=== PATIENT | male | born 1985 | race Asian ===

== ENCOUNTER 2017-10-25 00:46 | Emergency (ER) | payer OTHER ==
--- NOTE | 2017-10-25 01:19 | EDM.PDOC ---
ED HPI GENERAL MEDICAL PROBLEM - General Stated Complaint: HEADACHE AND PRESSURE HEADACHE Time Seen by Provider: 10/25/17 00:46 Source of Information: Reports: Patient, Family History Limitations: Reports: No Limitations - History of Present Illness INITIAL COMMENTS - FREE TEXT/NARRATIVE: 32 years old w m in prev healthy condition, come to the ed after he noticed pain at his post jael during and after intercourse. This i snow the second episode. No trauma, no N/V/D or any other acute medical issues. BP 161/75 Pulse 76 RR 17 Pulse ox 99% on RA Onset Date: 10/24/17 Onset Time: 18:00 Duration: Hour(s):, Intermittent, Improving Location: Reports: Head Quality: Reports: Ache, Dull, Throbbing Severity: Moderate Improves with: Reports: Other (intercourse) Worsens with: Reports: Other (interrcorse) Context: Reports: Other (intercourse) Associated Symptoms: Reports: No Other Symptoms headache Pain Score (Numeric/FACES): 8 - Related Data Allergies Allergy/AdvReac Type Severity Reaction Status Date / Time No Known Allergies Allergy Verified 10/25/17 01:36 Home Meds: Home Meds NK [No Known Home Meds] 10/25/17 [History] ED ROS GENERAL - Review of Systems Review Of Systems: See Below Constitutional: Reports: No Symptoms HEENT: Reports: No Symptoms Respiratory: Reports: No Symptoms Cardiovascular: Reports: No Symptoms Endocrine: Reports: No Symptoms GI/Abdominal: Reports: No Symptoms : Reports: No Symptoms Musculoskeletal: Reports: No Symptoms Skin: Reports: No Symptoms Neurological: Reports: No Symptoms Psychiatric: Reports: No Symptoms Hematologic/Lymphatic: Reports: No Symptoms Immunologic: Reports: No Symptoms - Physical Exam Exam: See Below Exam Limited By: Altered Mental Status General Appearance: Alert, WD/WN, No Apparent Distress Eye Exam: Bilateral Eye: Normal Inspection Ears: Normal External Exam Nose: Normal Inspection Throat/Mouth: Normal Inspection, Normal Lips, No Airway Compromise Head Exam: Atraumatic, Normocephalic Neck: Normal Inspection, Supple, Non-Tender, Full Range of Motion Respiratory/Chest: No Respiratory Distress, Lungs Clear, Normal Breath Sounds Cardiovascular: Normal Peripheral Pulses, Regular Rate, Rhythm GI/Abdominal: Normal Bowel Sounds, Soft, Non-Tender, No Organomegaly (Male) Exam: Deferred Rectal (Males) Exam: Deferred Neuro Exam (Abbreviated): Alert, Oriented, CN II-XII Intact, Normal Cognition, Normal Gait Back Exam: Normal Inspection, Full Range of Motion Extremities: Normal Inspection, Normal Range of Motion Psychiatric: Normal Affect, Normal Mood Skin Exam: Warm, Dry, Intact, Normal Color, No Rash EKG INTERPRETATION Rate (Beats/Min): 78 Course - Vital Signs Text/Narrative:: 32 years old w m in prev healthy condition, come to the ed after he noticed pain at his post jael during and after intercourse. This i snow the second episode. No trauma, no N/V/D or any other acute medical issues. BP 161/75 Pulse 76 RR 17 Pulse ox 99% on RA PE: WNWD W M NAD, Normal Neuro exam Imaging: CT head: NAD Impression: Headache, occipital, resolved in the ed Reexam: BP improved to 141/76 on D/C, H/A subsided. Plan: D/C with instructions Last Recorded V/S: Last Vital Signs Temp 36.6 C 10/25/17 00:55 Pulse 80 10/25/17 00:55 Resp 16 10/25/17 00:55 BP 161/75 H 10/25/17 00:55 Pulse Ox 98 10/25/17 00:55 - Orders/Labs/Meds Orders: Active Orders 24 hr Category Date Time Status Head wo Cont [CT] Stat Exams 10/25/17 01:19 Taken Departure - Departure Time of Disposition: 01:59 Disposition: Home, Self-Care 01 Condition: Good Clinical Impression: Headache Qualifiers: Headache chronicity pattern: episodic headache Intractability: not intractable - Discharge Information Referrals: Mj Dong MD [Primary Care Provider] - Forms: ED Department Discharge Additional Instructions: Please f/u with your PMD, consider MRI of head, please come back if your symptoms get worse acutely. - My Orders Last 24 Hours: My Active Orders 10/25/17 01:19 Head wo Cont [CT] Stat - Assessment/Plan Last 24 Hours: My Active Orders 10/25/17 01:19 Head wo Cont [CT] Stat
== END 2017-10-25 02:12 | disposition home or self-care (01) ==
LOC: FB.ED 00:46
DX: R51 Headache (principal)
CPT/HCPCS: 70450; 99284

== ENCOUNTER 2020-04-25 18:22 | Day surgery (SDC) | payer BC, OTHER ==
[2020-04-25] MEDS ORDERED: Ondansetron 4 MG/2 ML SDV IVPUSH ONE ×2 (19:11→22:01)
[2020-04-25] MEDS ORDERED: Morphine 2 MG/ML SYRINGE IVPUSH ONE (19:11)
[2020-04-25] MEDS ORDERED: Sodium Chloride 0.9% 1,000 ML IV SCH (19:15)
[2020-04-25] MEDS: Sodium Chloride 0.9% 10 ML Syringe FLUSH PRN (20:20)
[2020-04-25] MEDS ORDERED: Iopamidol 755 Mg/ML 100 ML Bottle IV ONE (20:32)
[2020-04-25] MEDS ORDERED: Lactated Ringers 1,000 ML IV SCH (22:00)
[2020-04-25] MEDS ORDERED: Succinylcholine 200 MG/10 ML MDV IV ONE (22:01)
[2020-04-25] MEDS ORDERED: Midazolam 1 MG/ML 2 ML SDV IV ONE (22:01)
[2020-04-25] MEDS ORDERED: Rocuronium 50 MG/5 ML Vial IV ONE (22:01)
[2020-04-25] MEDS ORDERED: Lactated Ringers 1,000 ML IV ONE (22:01)
[2020-04-25] MEDS ORDERED: Propofol 200 MG/20 ML SDV IV ONE (22:01)
[2020-04-25] MEDS ORDERED: fentaNYL 100 MCG/2 ML SDV IV ONE (22:01)
[2020-04-25] MEDS ORDERED: Glycopyrrolate 0.2 MG/ML 5 ML MDV IV ONE (22:01)
[2020-04-25] MEDS ORDERED: Neostigmine Methylsulfate 10 MG/10 ML MDV IVPUSH ONE (22:01)
[2020-04-25] MEDS ORDERED: HYDROmorphone 2 MG/ML SDV IV ONE (22:01)
[2020-04-25] MEDS ORDERED: Ketorolac 30 MG/ML SDV IVPUSH ONE (22:01)
[2020-04-25] MEDS ORDERED: cefOXitin 2 GM Vial IVPUSH ONE (22:22)
--- NOTE | 2020-04-25 22:30 | PCM.CONS ---
H&P History of Present Illness - General Date of Service: 04/25/20 Source of Information: Patient, RN Notes Reviewed History Limitations: Reports: No Limitations - History of Present Illness Symptom Onset Date: 04/24/20 Duration of Symptoms: Reports: Getting Worse Location: Reports: Abdomen (Initially diffuse and now on right side) Quality: Reports: Ache Severity: Moderate Improves with: Reports: None Worsens with: Reports: Movement Associated Symptoms: Reports: No Other Symptoms Right Middle Abdominal Pain Score (Numeric/FACES): 4 - Related Data Allergies/Adverse Reactions: Allergies Allergy/AdvReac Type Severity Reaction Status Date / Time No Known Allergies Allergy Verified 10/25/17 01:36 Home Medications: Home Meds NK [No Known Home Meds] 10/25/17 [History] Past Medical History - Past Health History Medical/Surgical History: Denies Medical/Surgical History Social & Family History - Tobacco Use Smoking Status *Q: Never Smoker H&P Review of Systems - Review of Systems: Review Of Systems: Comprehensive ROS is negative, except as noted in HPI. Exam - Exam Exam: See Below - Vital Signs Vital Signs: Last Vital Signs Temp 98.6 F 04/25/20 18:40 Pulse 87 04/25/20 18:40 Resp 16 04/25/20 18:40 BP 135/70 04/25/20 18:40 Pulse Ox 100 04/25/20 18:40 Weight: 83.915 kg - Exam General: Alert, Oriented Lungs: Clear to Auscultation, Normal Respiratory Effort Cardiovascular: Regular Rate, Regular Rhythm GI/Abdominal Exam: Soft, No Distention, Tender (in RLQ) - Patient Data Lab Results Last 24 hrs: Laboratory Results - last 24 hr 04/25/20 04/25/20 04/25/20 Range/Units 19:10 19:20 19:20 WBC 15.1 H (4.5-12.0) X10-3/uL RBC 5.26 (4.30-5.75) x10(6)uL Hgb 15.4 (13.5-17.8) g/dL Hct 47.7 (30.0-51.3) % MCV 90.7 (80-96) fL MCH 29.2 (27.7-33.6) pg MCHC 32.2 (32.2-35.4) g/dL RDW 12.6 (11.5-15.5) % Plt Count 313 (125-369) X10(3)uL MPV 7.9 (7.4-10.4) fL Neutrophils % (Manual) 68 (46-82) % Band Neutrophils % 3 (0-6) % Lymphocytes % (Manual) 23 (13-37) % Monocytes % (Manual) 5 (4-12) % Eosinophils % (Manual) 1 (0-5) % Sodium 138 (135-145) mmol/L Potassium 3.4 L (3.5-5.3) mmol/L Chloride 99 L (100-110) mmol/L Carbon Dioxide 33 H (21-32) mmol/L BUN 10 (7-18) mg/dL Creatinine 1.2 (0.70-1.30) mg/dL Est Cr Clr Drug Dosing 90.64 mL/min Estimated GFR (MDRD) > 60 (>60) BUN/Creatinine Ratio 8.3 L (9-20) Glucose 93 (80-116) mg/dL Calcium 9.7 (8.6-10.2) mg/dL Total Bilirubin 1.3 (0.1-1.3) mg/dL AST 23 (5-25) IU/L ALT 33 (12-36) U/L Alkaline Phosphatase 67 (56-112) IU/L Total Protein 8.4 H (6.0-8.0) g/dL Albumin 4.3 (3.5-5.2) g/dL Globulin 4.1 g/dL Albumin/Globulin Ratio 1.1 Amylase (25-115) U/L Lipase (73-393) U/L Urine Color Yellow (YELLOW) Urine Appearance Clear (CLEAR) Urine pH 8.0 H (5.0-6.5) Ur Specific [place] 1.010 (1.010-1.025) Urine Protein Negative (NEGATIVE) mg/dL Urine Glucose (UA) Normal (NORMAL) mg/dL Urine Ketones Negative (NEGATIVE) mg/dL Urine Occult Blood Negative (NEGATIVE) Urine Nitrite Negative (NEGATIVE) Urine Bilirubin Negative (NEGATIVE) Urine Urobilinogen Normal (NEGATIVE) mg/dL Ur Leukocyte Esterase Negative (NEGATIVE) 04/25/20 04/25/20 Range/Units 19:20 19:20 WBC (4.5-12.0) X10-3/uL RBC (4.30-5.75) x10(6)uL Hgb (13.5-17.8) g/dL Hct (30.0-51.3) % MCV (80-96) fL MCH (27.7-33.6) pg MCHC (32.2-35.4) g/dL RDW (11.5-15.5) % Plt Count (125-369) X10(3)uL MPV (7.4-10.4) fL Neutrophils % (Manual) (46-82) % Band Neutrophils % (0-6) % Lymphocytes % (Manual) (13-37) % Monocytes % (Manual) (4-12) % Eosinophils % (Manual) (0-5) % Sodium (135-145) mmol/L Potassium (3.5-5.3) mmol/L Chloride (100-110) mmol/L Carbon Dioxide (21-32) mmol/L BUN (7-18) mg/dL Creatinine (0.70-1.30) mg/dL Est Cr Clr Drug Dosing mL/min Estimated GFR (MDRD) (>60) BUN/Creatinine Ratio (9-20) Glucose (80-116) mg/dL Calcium (8.6-10.2) mg/dL Total Bilirubin (0.1-1.3) mg/dL AST (5-25) IU/L ALT (12-36) U/L Alkaline Phosphatase (56-112) IU/L Total Protein (6.0-8.0) g/dL Albumin (3.5-5.2) g/dL Globulin g/dL Albumin/Globulin Ratio Amylase 60 (25-115) U/L Lipase 89 (73-393) U/L Urine Color (YELLOW) Urine Appearance (CLEAR) Urine pH (5.0-6.5) Ur Specific [place] (1.010-1.025) Urine Protein (NEGATIVE) mg/dL Urine Glucose (UA) (NORMAL) mg/dL Urine Ketones (NEGATIVE) mg/dL Urine Occult Blood (NEGATIVE) Urine Nitrite (NEGATIVE) Urine Bilirubin (NEGATIVE) Urine Urobilinogen (NEGATIVE) mg/dL Ur Leukocyte Esterase (NEGATIVE) Result Diagrams: 04/25/20 19:20 04/25/20 19:20 Imaging Impressions Last 24 hrs: CT shows acute appendicitis Sepsis Event Note - Evaluation Sepsis Screening Result: No Definite Risk - Focused Exam Vital Signs: Vital Signs Temp Pulse Resp BP Pulse Ox 04/25/20 18:40 98.6 F 87 16 135/70 100 Date Exam was Performed: 04/25/20 Time Exam was Performed: 22:25 Consult PN Assessment/Plan Procedures: Procedures CT HEAD/BRAIN W/O DYE (10/25/17) EMERGENCY DEPT VISIT (10/25/17) (1) Appendicitis, acute SNOMED Code(s): 27458654 Code(s): K35.80 - UNSPECIFIED ACUTE APPENDICITIS Current Visit: Yes Problem List Initiated/Reviewed/Updated: Yes My Orders Last 24 Hours: My Active Orders 04/25/20 22:22 cefOXitin [Mefoxin] 2 gm IVPUSH ONETIME ONE Plan: Will proceed with lap appy. Risks and complications reviewed, consent obtained
[2020-04-25] MEDS ORDERED: cefOXitin 2 GM Vial ONE (22:32)
[2020-04-26] MEDS ORDERED: Acetaminophen/HYDROcodone 325-5 MG Tab PO PRN (00:09)
[2020-04-26] MEDS ORDERED: Ondansetron 4 MG/2 ML SDV IVPUSH PRN (00:09)
[2020-04-26] MEDS ORDERED: Morphine 2 MG/ML SYRINGE IVPUSH PRN (00:09)
--- NOTE | 2020-04-26 00:09 | PCM.OPNOTE ---
- General Post-Op/Procedure Note Date of Surgery/Procedure: 04/26/20 Operative Procedure(s): Lap Appy Pre Op Diagnosis: Acute Appendicitis Post-Op Diagnosis: Same Anesthesia Technique: General ET Tube Primary Surgeon: Mohit Godwin Anesthesia Provider: Mikaela Webb Pathology: Appendix EBL in mLs: 10 Complications: None Condition: Fair
[2020-04-26] MEDS ORDERED: Lactated Ringers 1,000 ML IV SCH (00:15)
[2020-04-26] MEDS: Sodium Chloride 0.9% 10 ML Syringe FLUSH PRN (01:00)
--- NOTE | 2020-04-26 07:18 | EDM.PDOC ---
ED HPI GENERAL MEDICAL PROBLEM - General Chief Complaint: Abdominal Pain Stated Complaint: STOMACH PAINS Time Seen by Provider: 04/25/20 18:40 Source of Information: Reports: Patient, RN Notes Reviewed History Limitations: Reports: No Limitations - History of Present Illness INITIAL COMMENTS - FREE TEXT/NARRATIVE: Patient presented to the ED because of abdominal which started yesterday. The pain is sharp, 5/10, over the RUQ and RLQ. Today he developed a low grade fever and nausea. He took TUMS without any relief. Onset Date: 04/24/20 Duration: Getting Worse Location: Reports: Abdomen (Initially diffuse and now on right side) Quality: Reports: Ache Severity: Moderate Improves with: Reports: None Worsens with: Reports: Movement Associated Symptoms: Reports: No Other Symptoms Right Middle Abdominal Pain Score (Numeric/FACES): 4 - Related Data Allergies Allergy/AdvReac Type Severity Reaction Status Date / Time No Known Allergies Allergy Verified 10/25/17 01:36 Home Meds: Home Meds NK [No Known Home Meds] 10/25/17 [History] Past Medical History - Past Health History Medical/Surgical History: Denies Medical/Surgical History Social & Family History - Tobacco Use Smoking Status *Q: Never Smoker ED ROS GENERAL - Review of Systems Review Of Systems: See Below Constitutional: Reports: No Symptoms HEENT: Reports: No Symptoms Respiratory: Reports: No Symptoms Cardiovascular: Reports: No Symptoms Endocrine: Reports: No Symptoms GI/Abdominal: Reports: Abdominal Pain, Nausea : Reports: No Symptoms Musculoskeletal: Reports: No Symptoms Skin: Reports: No Symptoms ED EXAM, GI/ABD - Physical Exam Exam: See Below Exam Limited By: No Limitations General Appearance: Alert, No Apparent Distress Ears: Normal External Exam, Normal [place] Nose: Normal Inspection Throat/Mouth: Normal Inspection Head: Atraumatic, Normocephalic Neck: Normal Inspection, Supple, Non-Tender Respiratory/Chest: No Respiratory Distress, Lungs Clear Cardiovascular: Normal Peripheral Pulses, Regular Rate, Rhythm, No Edema, No Gallop GI/Abdominal Exam: Normal Bowel Sounds, Soft, Other (tenderness over the RLQ and RUQ) Back Exam: Normal Inspection, Full Range of Motion Extremities: Normal Inspection, Normal Range of Motion, Non-Tender Neurological: Alert, Oriented, CN II-XII Intact, Normal Cognition, Normal Gait Course - Vital Signs Text/Narrative:: Labs/CT abd/pelvis result was discussed with patient and verbalized full understanding NS 1 L bolus Zofran 2 mg IV x1 Surgery consult was done with Dr Cole's-see notes for further details Last Recorded V/S: Last Vital Signs Temp 37.1 C 04/26/20 01:30 Pulse 68 04/26/20 01:30 Resp 16 04/26/20 01:30 BP 125/80 04/26/20 01:30 Pulse Ox 99 04/26/20 01:30 - Orders/Labs/Meds Orders: Active Orders 24 hr Category Date Time Status Patient Status [ADT] Routine ADT 04/26/20 00:09 Active Oxygen Therapy [RC] PRN Care 04/26/20 00:09 Active RT Incentive Spirometry [RC] Q2HWA Care 04/26/20 00:09 Active Vital Signs [RC] PER UNIT ROUTINE Care 04/26/20 00:09 Active Clear Liquid Diet [DIET] Diet 04/26/20 Breakfast Ordered Abdomen Pelvis w Cont [CT] Stat Exams 04/25/20 19:13 Taken Acetaminophen/HYDROcodone [[place] 325-5 MG] Med 04/26/20 00:09 Active 1 tab PO Q4H PRN Lactated Ringers [Ringers, Lactated] 1,000 ml Med 04/25/20 22:00 Active IV ASDIRECTED Lactated Ringers [Ringers, Lactated] 1,000 ml Med 04/26/20 00:15 Active IV ASDIRECTED Morphine Med 04/26/20 00:09 Active 2 mg IVPUSH Q1H PRN Ondansetron [Zofran] Med 04/26/20 00:09 Active 4 mg IVPUSH Q6H PRN Sodium Chloride 0.9% [Normal Saline] 1,000 ml Med 04/25/20 19:15 Active IV ASDIRECTED Sodium Chloride 0.9% [Saline Flush] Med 04/25/20 19:07 Active 10 ml FLUSH ASDIRECTED PRN Saline Lock Insert [OM.PC] Routine Oth 04/25/20 19:07 Ordered Resuscitation Status Routine Resus Stat 04/26/20 00:09 Ordered Medication Orders Hydrocodone Bitart/Acetaminophen ([place] 325-5 Mg) 1 tab PO Q4H PRN PRN Reason: Pain (mild 1-3) Last Admin: 04/26/20 07:04 Dose: 1 tab Documented by: GRACIA Sodium Chloride (Normal Saline) 1,000 mls @ 999 mls/hr IV ASDIRECTED [facility] Last Admin: 04/25/20 20:20 Dose: 999 mls/hr Documented by: JUSTIN Lactated Ringer's (Ringers, Lactated) 1,000 mls @ 150 mls/hr IV ASDIRECTED [facility] Last Admin: 04/25/20 22:00 Dose: 150 mls/hr Documented by: ERNIE Lactated Ringer's (Ringers, Lactated) 1,000 mls @ 125 mls/hr IV ASDIRECTED [facility] Last Admin: 04/26/20 04:45 Dose: 125 mls/hr Documented by: GRACIA Morphine Sulfate (Morphine) 2 mg IVPUSH Q1H PRN PRN Reason: Pain (severe 7-10) Ondansetron HCl (Zofran) 4 mg IVPUSH Q6H PRN PRN Reason: Nausea/Vomiting Sodium Chloride (Saline Flush) 10 ml FLUSH ASDIRECTED PRN PRN Reason: Keep Vein Open Last Admin: 04/26/20 01:00 Dose: 10 ml Documented by: Admin: 04/25/20 20:20 Dose: 10 ml Documented by: JUSTIN Labs: Laboratory Tests 04/25/20 04/25/20 04/25/20 Range/Units 19:10 19:20 19:20 WBC 15.1 H (4.5-12.0) X10-3/uL RBC 5.26 (4.30-5.75) x10(6)uL Hgb 15.4 (13.5-17.8) g/dL Hct 47.7 (30.0-51.3) % MCV 90.7 (80-96) fL MCH 29.2 (27.7-33.6) pg MCHC 32.2 (32.2-35.4) g/dL RDW 12.6 (11.5-15.5) % Plt Count 313 (125-369) X10(3)uL MPV 7.9 (7.4-10.4) fL Neutrophils % (Manual) 68 (46-82) % Band Neutrophils % 3 (0-6) % Lymphocytes % (Manual) 23 (13-37) % Monocytes % (Manual) 5 (4-12) % Eosinophils % (Manual) 1 (0-5) % Sodium 138 (135-145) mmol/L Potassium 3.4 L (3.5-5.3) mmol/L Chloride 99 L (100-110) mmol/L Carbon Dioxide 33 H (21-32) mmol/L BUN 10 (7-18) mg/dL Creatinine 1.2 (0.70-1.30) mg/dL Est Cr Clr Drug Dosing 90.64 mL/min Estimated GFR (MDRD) > 60 (>60) BUN/Creatinine Ratio 8.3 L (9-20) Glucose 93 (80-116) mg/dL Calcium 9.7 (8.6-10.2) mg/dL Total Bilirubin 1.3 (0.1-1.3) mg/dL AST 23 (5-25) IU/L ALT 33 (12-36) U/L Alkaline Phosphatase 67 (56-112) IU/L Total Protein 8.4 H (6.0-8.0) g/dL Albumin 4.3 (3.5-5.2) g/dL Globulin 4.1 g/dL Albumin/Globulin Ratio 1.1 Amylase (25-115) U/L Lipase (73-393) U/L Urine Color Yellow (YELLOW) Urine Appearance Clear (CLEAR) Urine pH 8.0 H (5.0-6.5) Ur Specific [place] 1.010 (1.010-1.025) Urine Protein Negative (NEGATIVE) mg/dL Urine Glucose (UA) Normal (NORMAL) mg/dL Urine Ketones Negative (NEGATIVE) mg/dL Urine Occult Blood Negative (NEGATIVE) Urine Nitrite Negative (NEGATIVE) Urine Bilirubin Negative (NEGATIVE) Urine Urobilinogen Normal (NEGATIVE) mg/dL Ur Leukocyte Esterase Negative (NEGATIVE) SARS Virus RNA (PCR) (NEGATIVE) 04/25/20 04/25/20 04/25/20 Range/Units 19:20 19:20 21:49 WBC (4.5-12.0) X10-3/uL RBC (4.30-5.75) x10(6)uL Hgb (13.5-17.8) g/dL Hct (30.0-51.3) % MCV (80-96) fL MCH (27.7-33.6) pg MCHC (32.2-35.4) g/dL RDW (11.5-15.5) % Plt Count (125-369) X10(3)uL MPV (7.4-10.4) fL Neutrophils % (Manual) (46-82) % Band Neutrophils % (0-6) % Lymphocytes % (Manual) (13-37) % Monocytes % (Manual) (4-12) % Eosinophils % (Manual) (0-5) % Sodium (135-145) mmol/L Potassium (3.5-5.3) mmol/L Chloride (100-110) mmol/L Carbon Dioxide (21-32) mmol/L BUN (7-18) mg/dL Creatinine (0.70-1.30) mg/dL Est Cr Clr Drug Dosing mL/min Estimated GFR (MDRD) (>60) BUN/Creatinine Ratio (9-20) Glucose (80-116) mg/dL Calcium (8.6-10.2) mg/dL Total Bilirubin (0.1-1.3) mg/dL AST (5-25) IU/L ALT (12-36) U/L Alkaline Phosphatase (56-112) IU/L Total Protein (6.0-8.0) g/dL Albumin (3.5-5.2) g/dL Globulin g/dL Albumin/Globulin Ratio Amylase 60 (25-115) U/L Lipase 89 (73-393) U/L Urine Color (YELLOW) Urine Appearance (CLEAR) Urine pH (5.0-6.5) Ur Specific [place] (1.010-1.025) Urine Protein (NEGATIVE) mg/dL Urine Glucose (UA) (NORMAL) mg/dL Urine Ketones (NEGATIVE) mg/dL Urine Occult Blood (NEGATIVE) Urine Nitrite (NEGATIVE) Urine Bilirubin (NEGATIVE) Urine Urobilinogen (NEGATIVE) mg/dL Ur Leukocyte Esterase (NEGATIVE) SARS Virus RNA (PCR) Negative (NEGATIVE) Meds: Medications Generic Name Dose Route Start Last Admin Trade Name Freq PRN Reason Stop Dose Admin Hydrocodone Bitart/Acetaminophen 1 tab 04/26/20 00:09 04/26/20 07:04 [place] 325-5 Mg PO 1 tab Q4H PRN Administration Pain (mild 1-3) Sodium Chloride 1,000 mls @ 999 mls/hr 04/25/20 19:15 04/25/20 20:20 Normal Saline IV 999 mls/hr ASDIRECTED DIONNE Administration Lactated Ringer's 1,000 mls @ 150 mls/hr 04/25/20 22:00 04/25/20 22:00 Ringers, Lactated IV 150 mls/hr ASDIRECTED DIONNE Administration Lactated Ringer's 1,000 mls @ 125 mls/hr 04/26/20 00:15 04/26/20 04:45 Ringers, Lactated IV 125 mls/hr ASDIRECTED DIONNE Administration Morphine Sulfate 2 mg 04/26/20 00:09 Morphine IVPUSH Q1H PRN Pain (severe 7-10) Ondansetron HCl 4 mg 04/26/20 00:09 Zofran IVPUSH Q6H PRN Nausea/Vomiting Sodium Chloride 10 ml 04/25/20 19:07 04/26/20 01:00 Saline Flush FLUSH 10 ml ASDIRECTED PRN Administration Keep Vein Open Discontinued Medications Generic Name Dose Route Start Last Admin Trade Name Freq PRN Reason Stop Dose Admin Cefoxitin Sodium 2 gm 04/25/20 22:22 04/25/20 22:37 Mefoxin IVPUSH 04/25/20 22:23 2 gm ONETIME ONE Administration Cefoxitin Sodium Confirm 04/25/20 22:32 04/25/20 22:37 Mefoxin Administered 04/25/20 22:33 Not Given Dose 2 gm .ROUTE .STK-MED ONE Iopamidol 100 ml 04/25/20 20:32 04/25/20 20:50 Isovue-370 (76%) IV 04/25/20 20:33 100 ml . DIRECTED ONE Administration Morphine Sulfate 2 mg 04/25/20 19:11 04/25/20 20:30 Morphine IVPUSH 04/25/20 19:12 2 mg ONETIME ONE Administration Ondansetron HCl 4 mg 04/25/20 19:11 04/25/20 20:30 Zofran IVPUSH 04/25/20 19:12 4 mg ONETIME ONE Administration Departure - Departure Time of Disposition: 20:00 Disposition: Still A Patient 30 Condition: Good Clinical Impression: Acute appendicitis - Discharge Information Sepsis Event Note (ED) - Evaluation Sepsis Screening Result: No Definite Risk - Focused Exam Vital Signs: Vital Signs Temp Temp Temp Pulse Resp BP BP 04/26/20 01:30 37.1 C 68 16 125/80 04/26/20 01:15 36.6 C 86 18 131/87 04/26/20 01:00 36.6 C 65 16 151/94 H 04/26/20 00:54 37.1 C 77 16 134/84 04/26/20 00:50 04/26/20 00:45 36.6 C 74 16 149/97 H 04/26/20 00:33 69 17 159/91 H 04/26/20 00:28 76 17 04/26/20 00:23 75 17 153/70 H 04/26/20 00:16 36.3 C 82 19 04/25/20 22:04 36.9 C 79 16 150/77 H BP Pulse Ox Pulse Ox 04/26/20 01:30 99 04/26/20 01:15 99 04/26/20 01:00 99 04/26/20 00:54 99 04/26/20 00:50 95 04/26/20 00:45 95 04/26/20 00:33 97 04/26/20 00:28 155/92 H 98 04/26/20 00:23 99 04/26/20 00:16 159/91 H 98 04/25/20 22:04 99 - My Orders Last 24 Hours: My Active Orders 04/25/20 19:07 Sodium Chloride 0.9% [Saline Flush] 10 ml FLUSH ASDIRECTED PRN Saline Lock Insert [OM.PC] Routine 04/25/20 19:13 Abdomen Pelvis w Cont [CT] Stat 04/25/20 19:15 Sodium Chloride 0.9% [Normal Saline] 1,000 ml IV ASDIRECTED 04/25/20 22:00 Lactated Ringers [Ringers, Lactated] 1,000 ml IV ASDIRECTED - Assessment/Plan Last 24 Hours: My Active Orders 04/25/20 19:07 Sodium Chloride 0.9% [Saline Flush] 10 ml FLUSH ASDIRECTED PRN Saline Lock Insert [OM.PC] Routine 04/25/20 19:13 Abdomen Pelvis w Cont [CT] Stat 04/25/20 19:15 Sodium Chloride 0.9% [Normal Saline] 1,000 ml IV ASDIRECTED 04/25/20 22:00 Lactated Ringers [Ringers, Lactated] 1,000 ml IV ASDIRECTED
--- NOTE | 2020-04-26 08:48 | PCM.PN ---
- General Info Date of Service: 04/26/20 Functional Status: Reports: Pain Controlled, Tolerating Diet, Ambulating - Review of Systems General: Reports: No Symptoms Pulmonary: Reports: No Symptoms Gastrointestinal: Reports: No Symptoms. Denies: Abdominal Pain - Patient Data Vitals - Most Recent: Last Vital Signs Temp 98.4 F 04/26/20 07:57 Pulse 89 04/26/20 07:57 Resp 16 04/26/20 07:57 BP 120/74 04/26/20 07:57 Pulse Ox 98 04/26/20 07:57 Weight - Most Recent: 83.915 kg I&O - Last 24 Hours: Intake & Output 04/25/20 04/26/20 04/26/20 22:59 06:59 14:59 Intake Total 650 Balance 650 Lab Results Last 24 Hours: Laboratory Results - last 24 hr 04/25/20 04/25/20 04/25/20 Range/Units 19:10 19:20 19:20 WBC 15.1 H (4.5-12.0) X10-3/uL RBC 5.26 (4.30-5.75) x10(6)uL Hgb 15.4 (13.5-17.8) g/dL Hct 47.7 (30.0-51.3) % MCV 90.7 (80-96) fL MCH 29.2 (27.7-33.6) pg MCHC 32.2 (32.2-35.4) g/dL RDW 12.6 (11.5-15.5) % Plt Count 313 (125-369) X10(3)uL MPV 7.9 (7.4-10.4) fL Neutrophils % (Manual) 68 (46-82) % Band Neutrophils % 3 (0-6) % Lymphocytes % (Manual) 23 (13-37) % Monocytes % (Manual) 5 (4-12) % Eosinophils % (Manual) 1 (0-5) % Sodium 138 (135-145) mmol/L Potassium 3.4 L (3.5-5.3) mmol/L Chloride 99 L (100-110) mmol/L Carbon Dioxide 33 H (21-32) mmol/L BUN 10 (7-18) mg/dL Creatinine 1.2 (0.70-1.30) mg/dL Est Cr Clr Drug Dosing 90.64 mL/min Estimated GFR (MDRD) > 60 (>60) BUN/Creatinine Ratio 8.3 L (9-20) Glucose 93 (80-116) mg/dL Calcium 9.7 (8.6-10.2) mg/dL Total Bilirubin 1.3 (0.1-1.3) mg/dL AST 23 (5-25) IU/L ALT 33 (12-36) U/L Alkaline Phosphatase 67 (56-112) IU/L Total Protein 8.4 H (6.0-8.0) g/dL Albumin 4.3 (3.5-5.2) g/dL Globulin 4.1 g/dL Albumin/Globulin Ratio 1.1 Amylase (25-115) U/L Lipase (73-393) U/L Urine Color Yellow (YELLOW) Urine Appearance Clear (CLEAR) Urine pH 8.0 H (5.0-6.5) Ur Specific Banks 1.010 (1.010-1.025) Urine Protein Negative (NEGATIVE) mg/dL Urine Glucose (UA) Normal (NORMAL) mg/dL Urine Ketones Negative (NEGATIVE) mg/dL Urine Occult Blood Negative (NEGATIVE) Urine Nitrite Negative (NEGATIVE) Urine Bilirubin Negative (NEGATIVE) Urine Urobilinogen Normal (NEGATIVE) mg/dL Ur Leukocyte Esterase Negative (NEGATIVE) SARS Virus RNA (PCR) (NEGATIVE) 04/25/20 04/25/20 04/25/20 Range/Units 19:20 19:20 21:49 WBC (4.5-12.0) X10-3/uL RBC (4.30-5.75) x10(6)uL Hgb (13.5-17.8) g/dL Hct (30.0-51.3) % MCV (80-96) fL MCH (27.7-33.6) pg MCHC (32.2-35.4) g/dL RDW (11.5-15.5) % Plt Count (125-369) X10(3)uL MPV (7.4-10.4) fL Neutrophils % (Manual) (46-82) % Band Neutrophils % (0-6) % Lymphocytes % (Manual) (13-37) % Monocytes % (Manual) (4-12) % Eosinophils % (Manual) (0-5) % Sodium (135-145) mmol/L Potassium (3.5-5.3) mmol/L Chloride (100-110) mmol/L Carbon Dioxide (21-32) mmol/L BUN (7-18) mg/dL Creatinine (0.70-1.30) mg/dL Est Cr Clr Drug Dosing mL/min Estimated GFR (MDRD) (>60) BUN/Creatinine Ratio (9-20) Glucose (80-116) mg/dL Calcium (8.6-10.2) mg/dL Total Bilirubin (0.1-1.3) mg/dL AST (5-25) IU/L ALT (12-36) U/L Alkaline Phosphatase (56-112) IU/L Total Protein (6.0-8.0) g/dL Albumin (3.5-5.2) g/dL Globulin g/dL Albumin/Globulin Ratio Amylase 60 (25-115) U/L Lipase 89 (73-393) U/L Urine Color (YELLOW) Urine Appearance (CLEAR) Urine pH (5.0-6.5) Ur Specific Banks (1.010-1.025) Urine Protein (NEGATIVE) mg/dL Urine Glucose (UA) (NORMAL) mg/dL Urine Ketones (NEGATIVE) mg/dL Urine Occult Blood (NEGATIVE) Urine Nitrite (NEGATIVE) Urine Bilirubin (NEGATIVE) Urine Urobilinogen (NEGATIVE) mg/dL Ur Leukocyte Esterase (NEGATIVE) SARS Virus RNA (PCR) Negative (NEGATIVE) Med Orders - Current: Current Medications Hydrocodone Bitart/Acetaminophen (Taylor 325-5 Mg) 1 tab PO Q4H PRN PRN Reason: Pain (mild 1-3) Last Admin: 04/26/20 07:04 Dose: 1 tab Documented by: Sodium Chloride (Normal Saline) 1,000 mls @ 999 mls/hr IV ASDIRECTED [facility] Last Admin: 04/25/20 20:20 Dose: 999 mls/hr Documented by: Lactated Ringer's (Ringers, Lactated) 1,000 mls @ 150 mls/hr IV ASDIRECTED DIONNE Last Admin: 04/25/20 22:00 Dose: 150 mls/hr Documented by: Lactated Ringer's (Ringers, Lactated) 1,000 mls @ 125 mls/hr IV ASDIRECTED DIONNE Last Admin: 04/26/20 04:45 Dose: 125 mls/hr Documented by: Morphine Sulfate (Morphine) 2 mg IVPUSH Q1H PRN PRN Reason: Pain (severe 7-10) Ondansetron HCl (Zofran) 4 mg IVPUSH Q6H PRN PRN Reason: Nausea/Vomiting Sodium Chloride (Saline Flush) 10 ml FLUSH ASDIRECTED PRN PRN Reason: Keep Vein Open Last Admin: 04/26/20 01:00 Dose: 10 ml Documented by: Discontinued Medications Cefoxitin Sodium (Mefoxin) 2 gm IVPUSH ONETIME ONE Stop: 04/25/20 22:23 Last Admin: 04/25/20 22:37 Dose: 2 gm Documented by: Cefoxitin Sodium (Mefoxin) Confirm Administered Dose 2 gm .ROUTE .STK-MED ONE Stop: 04/25/20 22:33 Last Admin: 04/25/20 22:37 Dose: Not Given Documented by: Iopamidol (Isovue-370 (76%)) 100 ml IV . DIRECTED ONE Stop: 04/25/20 20:33 Last Admin: 04/25/20 20:50 Dose: 100 ml Documented by: Morphine Sulfate (Morphine) 2 mg IVPUSH ONETIME ONE Stop: 04/25/20 19:12 Last Admin: 04/25/20 20:30 Dose: 2 mg Documented by: Ondansetron HCl (Zofran) 4 mg IVPUSH ONETIME ONE Stop: 04/25/20 19:12 Last Admin: 04/25/20 20:30 Dose: 4 mg Documented by: - Exam General: Alert, Oriented GI/Abdominal Exam: Soft, Non-Tender Wound/Incisions: Healing Well, Dressing Dry and Intact Sepsis Event Note - Evaluation Sepsis Screening Result: No Definite Risk - Focused Exam Vital Signs: Vital Signs Temp Temp Temp Pulse Resp BP BP 04/26/20 07:57 98.4 F 89 16 120/74 04/26/20 07:00 04/26/20 04:00 98.9 F 85 16 125/82 04/26/20 03:00 97.8 F 89 16 121/72 04/26/20 02:00 98.7 F 71 16 132/86 04/26/20 01:45 98.7 F 77 16 135/84 04/26/20 01:30 98.7 F 68 16 125/80 04/26/20 01:15 98 F 86 18 131/87 04/26/20 01:00 98 F 65 16 151/94 H 04/26/20 00:54 98.7 F 77 16 134/84 04/26/20 00:50 04/26/20 00:45 98 F 74 16 149/97 H 04/26/20 00:33 69 17 159/91 H 04/26/20 00:28 76 17 04/26/20 00:23 75 17 153/70 H 04/26/20 00:16 97.3 F 82 19 04/25/20 22:04 98.5 F 79 16 150/77 H BP Pulse Ox Pulse Ox 04/26/20 07:57 98 04/26/20 07:00 98 04/26/20 04:00 100 04/26/20 03:00 98 04/26/20 02:00 99 04/26/20 01:45 99 04/26/20 01:30 99 04/26/20 01:15 99 04/26/20 01:00 99 04/26/20 00:54 99 04/26/20 00:50 95 04/26/20 00:45 95 04/26/20 00:33 97 04/26/20 00:28 155/92 H 98 04/26/20 00:23 99 04/26/20 00:16 159/91 H 98 04/25/20 22:04 99 Date Exam was Performed: 04/26/20 Time Exam was Performed: 08:46 - Problem List & Annotations (1) Appendicitis, acute SNOMED Code(s): 19225994 Code(s): K35.80 - UNSPECIFIED ACUTE APPENDICITIS Status: Acute Current Visit: Yes - Problem List Review Problem List Initiated/Reviewed/Updated: Yes - My Orders Last 24 Hours: My Active Orders 04/26/20 00:09 Patient Status [ADT] Routine Oxygen Therapy [RC] PRN RT Incentive Spirometry [RC] Q2HWA Vital Signs [RC] PER UNIT ROUTINE Acetaminophen/HYDROcodone [Taylor 325-5 MG] 1 tab PO Q4H PRN Morphine 2 mg IVPUSH Q1H PRN Ondansetron [Zofran] 4 mg IVPUSH Q6H PRN Resuscitation Status Routine 04/26/20 00:15 Lactated Ringers [Ringers, Lactated] 1,000 ml IV ASDIRECTED 04/26/20 Breakfast Clear Liquid Diet [DIET] - Assessment Assessment:: Doing well - Plan Plan:: Will discharge later today F/u in 1 week
--- NOTE | 2020-04-26 10:52 | OR ---
DATE OF OPERATION: 04/25/2020 SURGEON: Mohit Godwin MD PREOPERATIVE DIAGNOSIS: Acute appendicitis. POSTOPERATIVE DIAGNOSIS: Acute appendicitis. PROCEDURE: Laparoscopic appendectomy. ANESTHESIA: General. PROCEDURE IN DETAIL: The patient was brought to the operating room, where general endotracheal anesthesia was administered. Time-out was performed. The abdomen was clipped, prepped with ChloraPrep, and draped sterilely. An infraumbilical incision was made and extended into the peritoneal cavity without difficulty. The Benjie cannulator was introduced and pneumoperitoneum obtained. 5 mm ports were placed in the suprapubic position and usp between the umbilicus and pubis. The patient was placed in Trendelenburg position and rotated to the left. An acutely inflamed appendix was easily visible and adherent to the right sidewall and was actually retroperitoneal, which required mobilization along the peritoneal reflection. The appendix was long, thick, and required me to take down the mesoappendix in 3 sections with transecting them with the Endo DOMINGO 2.5 mm stapler. There was a pulsatile vessel present with the first application that I placed 2 Endoclips on, with good hemostasis. Once the appendix was dissected free at the base of the cecum and I could be certain of the anatomy, I placed an Endo DOMINGO 3.5 mm stapler across the base of the cecum. Appendix was brought out through the umbilical incision site. There was no perforation present. The right lower quadrant was thoroughly irrigated and return was clear and hemostasis assured. Ports were removed under direct vision and remained hemostatic. Umbilical fascia was closed with [id number] 0 Vicryl. Skin was closed with 4-0 Vicryl subcuticular sutures. Benzoin and Steri-Strips were placed and Band-Aids applied. The patient tolerated the procedure well. He returned to Postanesthesia in stable condition. ESTIMATED BLOOD LOSS: 10 mL. /[id number] SENA/SHEKHAR
== END 2020-04-26 11:19 | disposition home or self-care (01) ==
LOC: FB.ED 18:22 → FB.SDS 22:00 → FB.MS 04-26 00:37 → FB.SDS 04-26 11:19
PROVIDERS: ATTEND Surgery
DX: K35.80 Unspecified acute appendicitis (principal); Z11.59 Encounter for screening for other viral diseases
CPT/HCPCS: 36415; 44970; 74177; 80053; 81003; 82150; 83690; 85025; 87635; 88304; 96374; 96375; 99285; A9270; J0330; J0694; J1170; J1885; J2250; J2270; J2405; J2704; J2710; J3010; J3490; J7030; J7120; Q9967; 00840-QZ; 99284; U0002